=== PATIENT | female | born 1975 ===

== ENCOUNTER 2025-01-26 14:14 | Outpatient (AMB) | payer SELFPAY ==
[2025-01-26 15:40] VITALS: BP 127/80; PULSE 78; RESP 16; TEMP 36.8; O2SAT 96
--- NOTE | 2025-01-26 15:40 | PD.RESCLINIC ---
Vital Signs 01/26/25 15:40 Weight 76.771 kg Weight Measurement Method Standing Scale BP 127/80 Blood Pressure Source Automatic Cuff Blood Pressure Location Right Upper Arm Position Sitting Respiration 16 Pulse 78 Pulse Source Monitor Temp 98.2 F Temp Source Temporal Artery Scan Pulse Oximetry (%) 96 Oxygen Delivery Method Room Air Allergies/Meds Allergies & Medications Allergies NKA Allergy (Unknown, Uncoded 02/02/25 15:23) No Known Allergies Allergy (Unknown, Uncoded 02/02/25 15:23) Medication Reconciliation cholecalciferol (vitamin D3) 1,250 mcg (50,000 unit) capsule 1,250 mcg PO QWEEK Vitamin D Deficiency 3 months #13 caps 02/02/25 [Rx] gabapentin 100 mg capsule 100 mg PO QHS 30 days #30 caps 02/02/25 [Rx] MA Intake Visit Data Collection New Patient or Established: Established Patient (seen at [facility] within 3 years) Seen by Clinical Staff ONLY (RN/MA): No Pain Present Currently: No Pain scale:: 0 Pain Scale Used: Stanton-Cornelius/Numerical Belt Molder Required: No PCP or OBGYN visit in last 3 months: No Hx Now: No Do You Feel Safe at Home: Yes Authorities Contacted: N/A Smoking Status Smoking Status: Never smoker Immunization / Flu Flu Vaccine in the Last 12 Months: No Flu Vaccine Exclusion Criteria: Refused by Patient Past Medical History Social History SMOKING STATUS: Smoking status: Never smoker Patient Portal Questionaires Social History Tobacco History Smoking Status: Never smoker Domestic Abuse History Do You Feel Safe at Home: Yes Review of Systems Report any current symptoms Only answer those that you have currently: Past Medical History Past Medical History Have you ever been diagnosed with any of the following: History of Present Illness HPI Narrative Ms. Peters is a 49-year-old female with no significant past medical history who presented to [facility] on 01/26/2025 to establish care with clinic. Patient reports that she would like to establish care with [facility] as their primary care provider, currently patient only complains of irregular menstruation, reports that her last period was about 6 months ago. Patient also complains of vasomotor symptoms of menopause, complains of hot flashes, reports waking up in the morning soaked in sweat. Patient also complains of mood changes and is suspecting that she is undergoing menopause. Patient complains of feeling tired at times, reports feeling tired mostly during the day and also complains of insomnia, reports using melatonin at night which helps her at times. Patient otherwise denies any past medical history or past hospitalizations. ROS negative, denies any chest pain, palpitations, headache, shortness of breath, falls, dizziness, nausea, vomiting, abdominal pain, recent weight gain/loss and dryness of skin. Review of Systems Review of Systems Narrative Review of Systems: ROS: -CONSTITUTIONAL: Denies weight loss, fever and chills. Complains of generalized weakness. -HEENT: Denies changes in vision and hearing. -RESPIRATORY: Denies SOB and cough. -CV: Denies palpitations and Chest Pain. -GI: Denies abdominal pain, nausea, vomiting,constipation and diarrhea. -: Denies dysuria and urinary frequency. -MSK: Denies myalgia and joint pain. -SKIN: Denies rash and pruritus. -NEUROLOGICAL: Denies headache and syncope. -PSYCHIATRIC: Positive for recent changes in mood, reports irritability. Denies anxiety and depression. Objective/Exam Narrative Physical exam: Physical Exam General: Awake and in no acute distress. Conversational and non-toxic appearing. HEENT: Normocephalic, atraumatic, mucous membranes moist. Heart: Regular rate and rhythm, no murmurs. Lungs: Clear to auscultation with no wheezing or crackles. Abdomen: Soft, nondistended, nontender, positive bowel sounds. ?No guarding or rebound tenderness. Neurologic: Alert and oriented x3, no gross neurological deficit, and patient able to move all 4 extremities. Extremities: No edema. Skin: No rash or ecchymoses. Assessment & Plan Diagnosis / Problem List (1) Encounter to establish care: Status: Acute Assessment & Plan: Patient presented to establish care with [facility] as primary care provider. Plan: -Ordered Labs CBC, CMP, Lipid Panel, FSH/LH, TSH, free t4, Vitamin D levels -Ordered CBC to rule out anemia, CMP to rule out any electrolyte/kidney/liver abnormalities, lipid panel to assess ASCVD risk, FSH/LH to assess for menopause, thyroid function test to assess for thyroid function and vitamin D levels as patient complains of weakness. (2) Menopausal problem: Status: Acute Assessment & Plan: Patient complains of mood changes (irritability), vasomotor symptoms (hot flashes), last menstrual period about 6 months ago and tiredness and insomnia Plan: - Menopause is a clinical diagnosis, though will follow FSH/LH - Patient using OTC melatonin for insomnia, educated on taking melatonin at 6 PM for best function and uptitrate to 6 mg/day if needed - Will follow-up in 1 week with labs Plan Follow-up in 1 week with labs. Case discussed with Attending Dr. Palacios. Camilla Rhoades PGY1 Disclaimer: This note was dictated by speech recognition. Minor errors in assistant manager airside operations may be present due to voice recognition software. Physician Billing New Patient New Patient: E/M Level 3-CPT 35861 Office Procedures [facility] Level of Care Nursing/Assessment Patient Status: Established Patient Nursing Assessment/Reassessment: Medication Reconciliation, Update PMH in EMR and Vital Signs Coordination of Care: Complex Care and Chronic Disease 1-5, Consent,records obtained, informed consent, Education Simp Pt/Fam and Staff clarify orders Established Patient Charge Established Patient Point Assignment: 85 Established Patient Point Charge: Level 3 (80-115)
== END 2025-01-26 15:14 | disposition home or self-care (01) ==
LOC: HODAHC 14:14
PROVIDERS: Supervising Provider Internal Medicine
DX: N92.6 Irregular menstruation, unspecified (principal)
CPT/HCPCS: 99213; G0463

== ENCOUNTER 2025-02-02 15:15 | Outpatient (AMB) | payer OTHER, SELFPAY ==
[2025-02-02 15:22] VITALS: BP 136/82; PULSE 104; RESP 18; TEMP 36.8; O2SAT 95
--- NOTE | 2025-02-02 15:22 | ACNOTE_ITS ---
Vital Signs 02/02/25 15:22 Weight 77.167 kg Weight Measurement Method Standing Scale BP 136/82 H Blood Pressure Source Automatic Cuff Blood Pressure Location Right Upper Arm Position Sitting Respiration 18 Pulse 104 H Pulse Source Monitor Temp 98.2 F Temp Source Temporal Artery Scan Pulse Oximetry (%) 95 Oxygen Delivery Method Room Air Allergies/Meds Allergies & Medications Allergies NKA Allergy (Unknown, Uncoded 02/02/25 15:23) No Known Allergies Allergy (Unknown, Uncoded 02/02/25 15:23) Medication Reconciliation cholecalciferol (vitamin D3) 1,250 mcg (50,000 unit) capsule 1,250 mcg PO QWEEK Vitamin D Deficiency 3 months #13 caps 02/02/25 [Rx] gabapentin 100 mg capsule 100 mg PO QHS 30 days #30 caps 02/02/25 [Rx] MA Intake Visit Data Collection New Patient or Established: Established Patient (seen at [facility] within 3 years) Seen by Clinical Staff ONLY (RN/MA): No Pain Present Currently: No Pain scale:: 0 Pain Scale Used: Stanton-Cornelius/Numerical Reading Professor Required: No PCP or OBGYN visit in last 3 months: No Hx Now: No Do You Feel Safe at Home: Yes Authorities Contacted: N/A Smoking Status Smoking Status: Never smoker Immunization / Flu Flu Vaccine in the Last 12 Months: No Flu Vaccine Exclusion Criteria: Refused by Patient Past Medical History Social History SMOKING STATUS: Smoking status: Never smoker Patient Portal Questionaires Social History Tobacco History Smoking Status: Never smoker Domestic Abuse History Do You Feel Safe at Home: Yes Review of Systems Report any current symptoms Only answer those that you have currently: Past Medical History Past Medical History Have you ever been diagnosed with any of the following: History of Present Illness HPI Narrative Ms. Peters is a 49-year-old female with no significant past medical history who presented to [facility] on 01/26/2025 to establish care with clinic. Patient reports that she would like to establish care with [facility] as their primary care provider, currently patient only complains of irregular menstruation, reports that her last period was about 6 months ago. Patient also complains of vasomotor symptoms of menopause, complains of hot flashes, reports waking up in the morning soaked in sweat. Patient also complains of mood changes and is suspecting that she is undergoing menopause. Patient complains of feeling tired at times, reports feeling tired mostly during the day and also complains of insomnia, reports using melatonin at night which helps her at times. Patient otherwise denies any past medical history or past hospitalizations. ROS negative, denies any chest pain, palpitations, headache, shortness of breath, falls, dizziness, nausea, vomiting, abdominal pain, recent weight gain/loss and dryness of skin. Labs 01/29/2025: CBC-WBC 6.5, RBC 4.38, hemoglobin 12.6, hematocrit 39.3, MCV 90, MCH 28.8, MCHC 32.1, RDW 12.8, platelets 308; CMP-glucose 107, BUN 13, creatinine 0.72, EGFR 104, BUN?creatinine ratio 18, sodium 139, potassium 4.5, chloride 104, carbon dioxide 24, calcium 9.7, protein 7.1, albumin 4.4, globulin 2.7, bilirubin 0.2, alk phos 98, AST 25, ALT 34; lipid panel-cholesterol 268, triglyceride 135, HDL 51, VLDL 25, LDL 192, LDL/HDL ratio 3.8; hemoglobin A1c?6.1; thyroid panel?TSH 2.02, free T4 1.03; vitamin D [id number]-52.4 ; LH 23.9, FSH 32.2 estradiol-75.4 02/02/2025: Patient seen and examined in clinic for follow-up. Labs reviewed discussed with patient findings of A1c 6.1 informed patient that she is in the prediabetic range, discussed lipid panel findings of elevated cholesterol 268 and LDL 192 ASCVD risk score 1.9%, prevent score 2.8% 10-year total CVD risk considering patient has LDL greater than 190 would benefit extensively from statin therapy, risks and benefits discussed patient wants to proceed with lifestyle modification initially. Educated on exercise and diet, verbalized understanding. Patient continues to complain of symptoms of menopause-insomnia, night sweats, hot flashes, mood changes. Discussed with patient HRT risks and benefits, patient declined hormone replacement therapy, educated patient on management of vasomotor symptoms discussed with patient different options like venlafaxine and paroxetine, patient does not want to try these drugs because of potential side effects. Discussed that gabapentin off label can be used for insomnia and hot flashes, patient interested in doing a trial of gabapentin at bedtime, will start patient on 100 mg gabapentin at bedtime and will uptitrate to 300 mg at bedtime. Patient to continue to use melatonin [id number] for insomnia, patient will be prescribed weekly vitamin D for 3 months considering she does have some vitamin D deficiency as well. Will follow-up with patient in 1 month to assess response to gabapentin. Review of Systems Review of Systems Systems Reviewed: All systems reviewed, normal except as documented Objective/Exam Narrative Physical exam: Physical Exam General: Awake and in no acute distress. Conversational and non-toxic appearing. HEENT: Normocephalic, atraumatic, mucous membranes moist. Heart: Regular rate and rhythm, no murmurs. Lungs: Clear to auscultation with no wheezing or crackles. Abdomen: Soft, nondistended, nontender, positive bowel sounds. ?No guarding or rebound tenderness. Neurologic: Alert and oriented x3, no gross neurological deficit, and patient able to move all 4 extremities. Extremities: No edema. Skin: No rash or ecchymoses. Results Labs 01/29/2025: CBC-WBC 6.5, RBC 4.38, hemoglobin 12.6, hematocrit 39.3, MCV 90, MCH 28.8, MCHC 32.1, RDW 12.8, platelets 308; CMP-glucose 107, BUN 13, creatinine 0.72, EGFR 104, BUN?creatinine ratio 18, sodium 139, potassium 4.5, chloride 104, carbon dioxide 24, calcium 9.7, protein 7.1, albumin 4.4, globulin 2.7, bilirubin 0.2, alk phos 98, AST 25, ALT 34; lipid panel-cholesterol 268, triglyceride 135, HDL 51, VLDL 25, LDL 192, LDL/HDL ratio 3.8; hemoglobin A1c?6.1; thyroid panel?TSH 2.02, free T4 1.03; vitamin D [id number]-45.4 ; LH 23.9, FSH 32.2 estradiol-75.4 Assessment & Plan Diagnosis / Problem List (1) Vasomotor symptoms due to menopause: Status: Acute Assessment & Plan: Complain of symptoms of menopause-insomnia, night sweats, hot flashes, mood changes. LMP about 6 months ago. Discussed with patient HRT risks and benefits, patient declined hormone replacement therapy, educated patient on management of vasomotor symptoms. Discussed with patient different options like venlafaxine and paroxetine, patient does not want to try these because of potential side effects. Discussed that gabapentin off label can be used for insomnia and hot flashes, patient interested in doing a trial of gabapentin at bedtime Plan: - Started on 100 mg gabapentin at bedtime and will uptitrate to 300 mg at bedtime. - Follow-up in 1 month to assess response - Continue [id number] melatonin - Discussed lifestyle modification: Layered clothing, cold water, avoid triggers, fans (2) Vitamin D deficiency: Status: Acute Assessment & Plan: Patient did complain of tiredness 01/29/2025- Vitamin D 25-hydroxy: 29.4 Plan: - Prescribed vitamin D 50,000 units weekly for 3 months (3) Prediabetes: Status: Acute Assessment & Plan: Labs 01/29/2025- Hemoglobin A1c - 6.1 Informed patient that she is in the prediabetic range Plan: - Wants to proceed with lifestyle modification - Educated to exercise moderate intensity 40 minutes 5 days a week - Monitor weight weekly, dietary interventions low carbohydrate high-protein diet - Discussed benefits of intermittent fasting - Will repeat hemoglobin A1c in 3 to 6 months - Maintain adequate hydration (4) Hyperlipidemia: Status: Acute Qualifiers: Hyperlipidemia type: moderate mixed hyperlipidemia not requiring statin therapy Qualified Code(s): E78.2 - Mixed hyperlipidemia Assessment & Plan: 01/29/2025 Lipid panel-cholesterol 268, triglyceride 135, HDL 51, VLDL 25, LDL 192, LDL/HDL ratio 3.8 2012 ASCVD risk score 1.9%, prevent score 2.8% 10-year total CVD risk Considering patient has LDL greater than 190 would benefit extensively from statin therapy Plan: - Patient wants to proceed with lifestyle modification - Educated to exercise moderate intensity 40 minutes 5 days a week - Monitor weight weekly, dietary interventions avoid fast food, high salt diet, fried food - Will repeat lipid panel in 3 to 6 months Plan Follow-up in 1 month, assess response to gabapentin Case discussed with Attending Dr. Palacios. Camilla Rhoades PGY1 Disclaimer: This note was dictated by speech recognition. Minor errors in print production associate may be present due to voice recognition software. Physician Billing Established Patient Established Patient: E/M Level 3-CPT 25413 Office Procedures [facility] Level of Care Nursing/Assessment Patient Status: Established Patient Nursing Assessment/Reassessment: Medication Reconciliation, Update PMH in EMR and Vital Signs Coordination of Care: Complex Care and Chronic Disease 1-5, Consent,records obtained, informed consent, Education Simp Pt/Fam, Results/Orders obtained and Staff clarify orders Established Patient Charge Established Patient Point Assignment: 90 Established Patient Point Charge: EP Level 3 (80-115)
== END 2025-02-02 16:08 | disposition home or self-care (01) ==
LOC: HODAHC 15:15
DX: E78.2 Mixed hyperlipidemia (principal); G47.00 Insomnia, unspecified; N95.1 Menopausal and female climacteric states; R61 Generalized hyperhidrosis; R23.2 Flushing; E55.9 Vitamin D deficiency, unspecified; R73.03 Prediabetes
CPT/HCPCS: 99213; G0463

== ENCOUNTER 2025-03-30 13:45 | Outpatient (AMB) | payer OTHER, SELFPAY ==
--- NOTE | 2025-03-30 13:55 | ACNOTE_ITS ---
Vital Signs 03/30/25 13:56 Height 1.63 m Height Method Stated Weight 75.013 kg Weight Measurement Method Standing Scale BMI 28.3 BP 110/79 Blood Pressure Source Automatic Cuff Blood Pressure Location Right Upper Arm Position Sitting Respiration 18 Pulse 91 Pulse Source Monitor Temp 97.6 F Temp Source Temporal Artery Scan Pulse Oximetry (%) 96 Oxygen Delivery Method Room Air Allergies/Meds Allergies & Medications Allergies NKA Allergy (Unknown, Uncoded 03/30/25 13:57) No Known Allergies Allergy (Unknown, Uncoded 03/30/25 13:57) Medication Reconciliation cholecalciferol (vitamin D3) 1,250 mcg (50,000 unit) capsule 1,250 mcg PO QWEEK Vitamin D Deficiency 3 months #13 caps 03/30/25 [Rx] gabapentin 300 mg capsule 300 mg PO QHS Vasomotor Symptoms of Menopause #30 caps 03/30/25 [Rx] MA Intake Visit Data Collection New Patient or Established: Established Patient (seen at [facility] within 3 years) Seen by Clinical Staff ONLY (RN/MA): No Pain Present Currently: No Pain scale:: 0 Pain Scale Used: Stanton-Cornelius/Numerical Curatorial Specialist Required: No PCP or OBGYN visit in last 3 months: No Hx Now: No Do You Feel Safe at Home: Yes Authorities Contacted: N/A Smoking Status Smoking Status: Never smoker Immunization / Flu Flu Vaccine in the Last 12 Months: No Flu Vaccine Exclusion Criteria: No Exclusion Criteria Past Medical History Social History SMOKING STATUS: Smoking status: Never smoker Patient Portal Questionaires Social History Tobacco History Smoking Status: Never smoker Domestic Abuse History Do You Feel Safe at Home: Yes Review of Systems Report any current symptoms Only answer those that you have currently: Past Medical History Past Medical History Have you ever been diagnosed with any of the following: History of Present Illness HPI Narrative Ms. Peters is a 49-year-old female with no significant past medical history who presented to [facility] on 01/26/2025 to establish care with clinic. Patient reports that she would like to establish care with [facility] as their primary care provider, currently patient only complains of irregular menstruation, reports that her last period was about 6 months ago. Patient also complains of vasomotor symptoms of menopause, complains of hot flashes, reports waking up in the morning soaked in sweat. Patient also complains of mood changes and is suspecting that she is undergoing menopause. Patient complains of feeling tired at times, reports feeling tired mostly during the day and also complains of insomnia, reports using melatonin at night which helps her at times. Patient otherwise denies any past medical history or past hospitalizations. ROS negative, denies any chest pain, palpitations, headache, shortness of breath, falls, dizziness, nausea, vomiting, abdominal pain, recent weight gain/loss and dryness of skin. Labs 01/29/2025: CBC-WBC 6.5, RBC 4.38, hemoglobin 12.6, hematocrit 39.3, MCV 90, MCH 28.8, MCHC 32.1, RDW 12.8, platelets 308; CMP-glucose 107, BUN 13, creatinine 0.72, EGFR 104, BUN?creatinine ratio 18, sodium 139, potassium 4.5, chloride 104, carbon dioxide 24, calcium 9.7, protein 7.1, albumin 4.4, globulin 2.7, bilirubin 0.2, alk phos 98, AST 25, ALT 34; lipid panel-cholesterol 268, triglyceride 135, HDL 51, VLDL 25, LDL 192, LDL/HDL ratio 3.8; hemoglobin A1c?6.1; thyroid panel?TSH 2.02, free T4 1.03; vitamin D 71-[id number]-73.4 ; LH 23.9, FSH 32.2 estradiol-75.4 02/02/2025: Patient seen and examined in clinic for follow-up. Labs reviewed discussed with patient findings of A1c 6.1 informed patient that she is in the prediabetic range, discussed lipid panel findings of elevated cholesterol 268 and LDL 192 ASCVD risk score 1.9%, prevent score 2.8% 10-year total CVD risk considering patient has LDL greater than 190 would benefit extensively from statin therapy, risks and benefits discussed patient wants to proceed with lifestyle modification initially. Educated on exercise and diet, verbalized understanding. Patient continues to complain of symptoms of menopause-insomnia, night sweats, hot flashes, mood changes. Discussed with patient HRT risks and benefits, patient declined hormone replacement therapy, educated patient on management of vasomotor symptoms discussed with patient different options like venlafaxine and paroxetine, patient does not want to try these drugs because of potential side effects. Discussed that gabapentin off label can be used for insomnia and hot flashes, patient interested in doing a trial of gabapentin at bedtime, will start patient on 100 mg gabapentin at bedtime and will uptitrate to 300 mg at bedtime. Patient to continue to use melatonin [id number] for insomnia, patient will be prescribed weekly vitamin D for 3 months considering she does have some vitamin D deficiency as well. Will follow-up with patient in 1 month to assess response to gabapentin. 03/30/2025: Patient seen and examined in clinic follow-up. Patient reported that she has been actively involved in lifestyle changes, reports losing weight. On chart review patient has lost about 2.1 kg in the last week, patient otherwise reports that her symptoms of menopause have been well-controlled on gabapentin and she has been feeling more active since she started taking vitamin D. Patient also reports that gabapentin helps with insomnia, we will uptitrate the dose of gabapentin to 300 mg at bedtime, prescription sent to pharmacy. Otherwise patient has no current complaints, we will obtain labs and follow-up in 2 months in May. Will recheck lipid panel, hemoglobin A1c, CMP and vitamin D levels. STOP-BANG score for obstructive sleep apnea unremarkable, will defer from sleep study for now. Review of Systems Review of Systems Systems Reviewed: All systems reviewed, normal except as documented Objective/Exam Narrative Physical exam: Physical Exam General: Awake and in no acute distress. Conversational and non-toxic appearing. HEENT: Normocephalic, atraumatic, mucous membranes moist. Heart: Regular rate and rhythm, no murmurs. Lungs: Clear to auscultation with no wheezing or crackles. Abdomen: Soft, nondistended, nontender, positive bowel sounds. ?No guarding or rebound tenderness. Neurologic: Alert and oriented x3, no gross neurological deficit, and patient able to move all 4 extremities. Extremities: No edema. Skin: No rash or ecchymoses. Assessment & Plan Diagnosis / Problem List (1) Vasomotor symptoms due to menopause: Status: Acute Assessment & Plan: Complain of symptoms of menopause-insomnia, night sweats, hot flashes, mood changes. LMP about 6 months ago. Discussed with patient HRT risks and benefits, patient declined hormone replacement therapy, educated patient on management of vasomotor symptoms. Discussed with patient different options like venlafaxine and paroxetine, patient does not want to try these because of potential side effects. Discussed that gabapentin off label can be used for insomnia and hot flashes, patient interested in doing a trial of gabapentin at bedtime Plan: - Increase gabapentin to 300 mg at bedtime - Follow-up in 2 months to assess response - Continue [id number] melatonin - Discussed lifestyle modification: Layered clothing, cold water, avoid triggers, fans (2) Vitamin D deficiency: Status: Acute Assessment & Plan: Patient did complain of tiredness 01/29/2025- Vitamin D 25-hydroxy: 29.4 Plan: - Prescribed vitamin D 50,000 units weekly for 6 months, will repeat vitamin D levels prior to next visit (3) Prediabetes: Status: Acute Assessment & Plan: Labs 01/29/2025- Hemoglobin A1c - 6.1 Informed patient that she is in the prediabetic range Patient reports actively modifying lifestyle factors, has lost weight since last visit. Plan: - Wants to proceed with lifestyle modification - Educated to exercise moderate intensity 40 minutes 5 days a week - Monitor weight weekly, dietary interventions low carbohydrate high-protein diet - Discussed benefits of intermittent fasting - Will repeat hemoglobin A1c prior to next visit - Maintain adequate hydration (4) Hyperlipidemia: Status: Acute Qualifiers: Hyperlipidemia type: moderate mixed hyperlipidemia not requiring statin therapy Qualified Code(s): E78.2 - Mixed hyperlipidemia Assessment & Plan: 01/29/2025 Lipid panel-cholesterol 268, triglyceride 135, HDL 51, VLDL 25, LDL 192, LDL/HDL ratio 3.8 2012 ASCVD risk score 1.9%, prevent score 2.8% 10-year total CVD risk Considering patient has LDL greater than 190 would benefit extensively from statin therapy Will continue with lifestyle modification, has lost weight since last visit Plan: - Patient wants to proceed with lifestyle modification - Educated to exercise moderate intensity 40 minutes 5 days a week - Monitor weight weekly, dietary interventions avoid fast food, high salt diet, fried food - Will repeat lipid panel in prior to next visit Plan Follow-up in 2 months with repeat labs. Case discussed with Attending Dr. Palacios. Camilla Rhoades PGY1 Disclaimer: This note was dictated by speech recognition. Minor errors in bar turner may be present due to voice recognition software. Physician Billing Established Patient Established Patient: E/M Level 3-CPT 10884 Office Procedures [facility] Level of Care Nursing/Assessment Patient Status: Established Patient Nursing Assessment/Reassessment: Medication Reconciliation, Update PMH in EMR and Vital Signs Coordination of Care: Complex Care and Chronic Disease 1-5, Consent,records obtained, informed consent, Education Simp Pt/Fam and Staff clarify orders Established Patient Charge Established Patient Point Assignment: 85 Established Patient Point Charge: EP Level 3 (80-115)
[2025-03-30 13:56] VITALS: BP 110/79; PULSE 91; RESP 18; TEMP 36.4; O2SAT 96; BMI 28.3
== END 2025-03-30 15:01 | disposition home or self-care (01) ==
LOC: HODAHC 13:45
DX: N95.1 Menopausal and female climacteric states (principal); E55.9 Vitamin D deficiency, unspecified; R73.03 Prediabetes; E78.2 Mixed hyperlipidemia
CPT/HCPCS: 99213; G0463